=== PATIENT | female | born 1985 | race Hispanic/Latino ===

== ENCOUNTER 2017-09-10 16:13 | Outpatient (CLI) | payer OTHER ==
--- NOTE | 2017-09-10 19:52 | Ultrasound Report ---
FINAL REPORT PROCEDURE: US OB > = 14 WEEKS FETUS TECHNIQUE: Real-time transabdominal sonography of the uterus, placenta, amniotic fluid, adnexa, and fetus was performed with image documentation. Measurements were obtained to determine age/size. M-mode Doppler was used to document heartbeat. CPT 89499 HISTORY: well being. COMPARISON: Biophysical profile done same day and time. FINDINGS: LMP 12/04/2016. Clinical age: 40 weeks 0 days. EDC: 09/10/2017. GENERAL: IUP: Single living intrauterine . Position: Cephalic. Placental position: Anterior, grade 1 without previa. Amniotic fluid volume: 19.8 cm. MATERNAL: Uterus: Within normal limits. Cervical length: 3.6 cm. Internal Os: Closed. FETUS: Heart rate and rhythm: 143 beats per minute. anatomic survey: Choroid plexus, lateral ventricle, stomach, kidneys, bladder, diaphragm, four-chamber heart, three-vessel cord/insertion, and portions of the spine visualized. Cisterna magna and cerebellum not seen. MEASUREMENTS: BPD: 9.21 cm, 37 weeks 3 days HC: 34.59 cm, 40 weeks 0 days AC: 37.12 cm, 41 weeks 0 days FL: 8.03 cm, 41 weeks 0 days CI: 77 0.1 HC/AC: 0.93 Mean Gestational Age (composite criteria): 39 weeks 6 days. Ratio biometry: Please see biophysical profile done same day and time. Biophysical profile 10/14. Estimated Weight: 4074 grams. 84th percentile based on [place]. Interval growth: Appropriate. Estimated Due Date (earliest scan): 09/11/2017. IMPRESSION: Single intrauterine gestation at 39 weeks 6 days estimated due date: 09/11/2017. Normal survey with appropriate growth. Biophysical profile done on separate exam. Please refer to this exam for full details.
--- NOTE | 2017-09-10 20:02 | Ultrasound Report ---
FINAL REPORT PROCEDURE: US OB BPP WO NON-STRESS TECHNIQUE: Sonographic evaluation for breathing, movement, tone, and amniotic fluid volume was performed. CPT 32629 HISTORY: well being. COMPARISON: Please refer to full obstetric ultrasound dated same day and time for full details. FINDINGS: Clinical age: 40 weeks 0 days. VELASQUEZ: 09/10/2017. Amniotic fluid volume: Normal-score 2. At least one vertical pocket > 2 cm or more in vertical axis. breathing: Normal-score 2. movement: Normal-score 2. tone: Normal. Score: 8 of 8. IMPRESSION: Normal biophysical profile.
[2017-09-11 18:36] VITALS: BP 109/56
== END 2017-09-10 19:37 | disposition home or self-care (01) ==
LOC: TRG 16:13
PROVIDERS: ATTEND Obstetrics & Gynecology
DX: O47.1 False labor at or after 37 completed weeks of gestation (principal); Z3A.40 40 weeks gestation of pregnancy
CPT/HCPCS: 59025; 76805; 76819